=== PATIENT | male | born 1975 ===

== ENCOUNTER 2017-06-02 21:34 | Emergency (ER) | payer OTHER ==
[2017-06-02 21:35] VITALS: BMI 22.4
[2017-06-02 21:45] VITALS: BP 154/98; PULSE 88; RESP 18; TEMP 98.8; O2SAT 100
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
[2017-06-02] MEDS ORDERED: TDAP Vaccine 0.5 mL Syr IM ONE (22:07)
--- NOTE | 2017-06-03 08:20 | RAD ---
PROCEDURE: Bilateral Knee Radiographs. HISTORY: injury COMPARISON: None. FINDINGS: BONES: Right Knee: Normal. No fracture. Left Knee: Normal. No fracture. JOINTS: Right Knee: Normal. No osteoarthritis. Left knee: Normal. No osteoarthritis. SOFT TISSUES: Right Knee: Normal. Left Knee: Normal. JOINT EFFUSION: Right Knee: None. Left Knee: None. OTHER FINDINGS: None. IMPRESSION: Normal radiographs of the knees.
== END 2017-06-03 00:33 | disposition home or self-care (01) ==
LOC: ED 21:34
DX: S80.211A Abrasion, right knee, initial encounter (principal); S80.212A Abrasion, left knee, initial encounter; S80.00XA Contusion of unspecified knee, initial encounter; W10.9XXA Fall (on) (from) unspecified stairs and steps, initial encounter; Y99.0 Civilian activity done for income or pay; Z23 Encounter for immunization